=== PATIENT | male | born 1940 | race Caucasian/White ===

== ENCOUNTER → 2019-01-01 | Outpatient (REF) | payer MEDICARE, BC | LOC: M LAB REF 17:18 | PROVIDERS: ATTEND Nurse Practitioner Family | DX: C44.319 Basal cell carcinoma of skin of other parts of face (principal) ==

== ENCOUNTER → 2019-02-12 | Outpatient (REF) | payer MEDICARE, BC | LOC: M LAB LCGH 11:30 | PROVIDERS: ATTEND Nurse Practitioner Family | DX: D48.9 Neoplasm of uncertain behavior, unspecified (principal) ==